=== PATIENT | female | born 1995 | race Two or more races ===

== ENCOUNTER 2018-08-15 09:17 | Emergency (ER) | payer OTHER ==
[~2018-08-15] VITALS: Ht 152.4 cm; Wt 39.6 kg
[2018-08-15 09:21] VITALS: BP 114/72
[2018-08-15] MEDS ORDERED: DEXAMETHASONE 4 MG TABLET ONE (09:52)
[2018-08-15] MEDS ORDERED: BACITRACIN ZINC OINT 500U/GM, 0.9 GM ONE (09:53)
[2018-08-15] MEDS ORDERED: DEXAMETHASONE 4 MG TABLET PO ONE (10:00)
--- NOTE | 2018-08-15 10:00 | NUR ---
strep & flu swab sent to lab & awaiting results, pt in room, nad, no needs at this time.
[2018-08-15 10:42] LABS: RAPID INFLUENZA A Negative (Negative); RAPID INFLUENZA B Negative (Negative)
== END 2018-08-15 11:09 | disposition home or self-care (01) ==
LOC: ED 10:08
DX: J02.8 Acute pharyngitis due to other specified organisms (principal)
CPT/HCPCS: 87081; 87400; 87880; 99283